=== PATIENT | male | born 1990 | race Caucasian/White ===

== ENCOUNTER 2017-07-04 02:19 | Emergency (ER) | payer MEDICAID, SELFPAY ==
[2017-07-04 02:20] VITALS: BP 100/68; PULSE 69; RESP 12; TEMP 36.5; O2SAT 99; BMI 21.6
--- NOTE | 2017-07-04 02:42 | RAD_ITS ---
STUDY: X-RAY - RIGHT HAND REASON FOR EXAM: Male, 26 years old. Dog bite puncture wound the lateral aspect of the second metacarpal TECHNIQUE: 3 view(s) of the hand. COMPARISON: None. FINDINGS: Normal radiocarpal articulation. Normal distal radioulnar joint. Normal visualized carpal bones. Normal carpal articulations Normal carpometacarpal articulation of the thumb. Normal second through fifth carpometacarpal joints. Normal metacarpi. Normal metacarpophalangeal joint of the thumb. Normal interphalangeal joint of the thumb. Normal proximal and distal phalanges of the thumb. Normal metacarpophalangeal joints of the second through fifth fingers. Normal proximal and distal interphalangeal joints of the second through fifth fingers. Normal phalanges of the second through fifth fingers. The soft tissue structures are unremarkable. RAD/Hand Min 3 Views IMPRESSION: No demonstrated acute osseous injury. Electronically Signed: Jaison Garcia MD at 3:22 EDT Tel , Service support ,
[2017-07-04] MEDS: HYDROcodone Bitartrate/Apap 5/325 Tablet PO (02:48)
--- NOTE | 2017-07-04 03:53 | ED.VISSUMM ---
- ER Visit Summary Date of Service: 07/04/17 Chief Complaint: dog bite to right hand History of Present Illness: The patient is a 26 M who presents for dog bite to the right hand onset prior to arrival. Patient states he woke up to the dog getting into food, and when the patient tried to get him back into his crate, the dog bit him on the right hand. Rabies for the dog are up-to-date. Patient's tetanus has been updated in the last 5 years. Patient complains of pain. Limited view secondary to pain. Patient is right-handed. Physical Examination: Patient is awake and alert, afebrile, in no distress. Examination of the right upper extremity shows a 2+ radial pulse. Patient has 2 puncture wounds to the dorsum of the hand, over the proximal fourth and fifth metacarpals with associated swelling. Abrasion over the third MCP joint. 2 superficial lacerations proximal to the second and third MCP joints on the volar surface of the hand. Distal circulation, sensation, and motor function are intact. Patient able to fully flex and extend the fingers. Full flexion and extension of the wrist. Test Results: [] Emergency Department Course and Treatment: X-ray was performed of the hand given the swelling on the dorsum to make sure there is no retained foreign body such as a tooth. X-ray showed no retained teeth or bony involvement. Patient's hand was copiously irrigated using tap water. Wounds were explored and showed no involvement of the tendons, or neurovascular structures. Because these are puncture bite wounds, they will be left to heal by secondary intention. Patient was started on Augmentin for infection prophylaxis. He was given prescription for naproxen for pain. Wound care instructions and return precautions given. Patient discharged home. Treatment Plan: [] Disposition: [] Impression: Dog bite to the right hand This note was generated with [employer] dictation software. It may contain incorrect words, spelling, and punctuation that were not noted in review of the chart prior to signing ED Disposition - Plan for ED Patient: Disposition: Home or Assisted Living Chief Complaint: Bite Instructions: ED Bite Dog Prescriptions: Amox/Clavulanate Tablet [Augmentin Tablet] 875 mg PO Q12H #14 tab Naproxen [Naprosyn] 500 mg PO BID PRN #20 tab Referrals: Ronny Mitchell MD [STAFF PHYSICIAN] - 3-5 Days if not improving Care Physician,No Primary [Primary Care Provider] - Additional Instructions: Take the antibiotic as prescribed to help prevent infection in your hand from the dog bite. You may use naproxen as needed for pain. Wash the wounds gently with soap and water. Keep them clean and protected while at work. If you note any severe swelling, pus draining from the wounds, red streaking up your arm, inability to use your hand, numbness, or any other concerns, return immediately to the emergency department for another evaluation.
[2017-07-04 04:07] VITALS: PULSE 72; RESP 16; O2SAT 98
== END 2017-07-04 04:08 | disposition home or self-care (01) ==
PROVIDERS: Emergency Provider Emergency Medicine
DX: S61.451A Open bite of right hand, initial encounter (principal); W54.0XXA Bitten by dog, initial encounter; Y93.9 Activity, unspecified; Y92.9 Unspecified place or not applicable; Y99.9 Unspecified external cause status
CPT/HCPCS: 73130; 99283

== ENCOUNTER 2019-01-20 03:52 | Emergency (ER) | payer SELFPAY ==
[2019-01-20] VITALS (7 sets, daily range): BP systolic 92–169; BP diastolic 51–144; PULSE 84–115; RESP 14–22; TEMP 37.1; O2SAT 96–100; BMI 20.6
--- NOTE | 2019-01-20 04:22 | EKG12_ITS ---
Test Reason : SUBSTANCE ABUSE Blood Pressure : / mmHG Vent. Rate : 083 BPM Atrial Rate : 083 BPM P-R Int : 130 ms QRS Dur : 082 ms QT Int : 358 ms P-R-T Axes : 072 091 066 degrees QTc Int : 420 ms Normal sinus rhythm with sinus arrhythmia Rightward axis Nonspecific T wave abnormality Abnormal ECG Confirmed by MARSHALL FERRER, JAILENE ([id number]), video effects editor HECTOR [employer]STLE ([id number]) on 01/21/2019 2:51:21 PM Referred By: BB Confirmed By:JAILENE OLIVARES MD
--- NOTE | 2019-01-20 04:23 | ED.VIS.CHEST ---
History of Present Illness Chief Complaint: Substance Abuse Informant: Patient Onset: Hours - 1 Activity at onset: - - just after snorting cocaine Timing: Continuous Quality: Heaviness Location: Substernal Current Severity: Mild Maximum Severity: Mild Worsened By: Nothing Relieved By: Nothing Associated Symptoms: Dyspnea. Negative for: Nausea, Vomiting, Diaphoresis, Cough, Lightheadedness, Palpitations Narrative: Patient states he has been abusing a significant amount of methamphetamine for the past week and as a result, not sleeping. Tonight he used methamphetamine along with cocaine. Subsequently, he started having chest heaviness and some trouble breathing and feels like my nervous system is shutting down, if you know what I mean. He states the breathing is better now but the chest heaviness persists. States he does not do cocaine often, has never had this before or any heart problems that he knows of although he had a history of asthma as a child. He does not feel like he is wheezing now. - Past Medical History (1) Mild intermittent asthma Status: Chronic Past Medical History - Allergies and Home Meds Allergies/Adverse Reactions: Allergies No Known Allergies Allergy (Verified 01/20/19 03:59) Primary Care Physician: [facility] [STAFF PHYSICIAN] - As soon as possible Lives: Alone Smoking Status: Current every day smoker Alcohol: None Drugs: Cocaine, - - Methamphetamine Review of Systems General: Denies: Chills, Fever, Sweats Eyes: Denies: Visual changes - bilaterally, Diplopia ENT: Denies: Bilateral ear pain, Rhinorrhea, Sore throat Cardiovascular: Reports: Chest pain. Denies: Palpitations Respiratory: Reports: Dyspnea. Denies: Cough, Dyspnea on exertion Gastrointestinal: Denies: Abdominal pain, Nausea, Vomiting, Diarrhea, Melena, Hematochezia Genitourinary: Denies: Dysuria, Hematuria, Frequency Musculoskeletal: Denies: Neck pain, Back pain, Extremity Pain Skin: Denies: Rash, Wounds Neurological: Denies: Headache, Weakness, Numbness Psych: Reports: Anxiety. Denies: Suicidal thoughts Physical Exam Vital Signs/Narrative: Vital Signs Temp Pulse Resp BP Pulse Ox 01/20/19 03:52 98.8 F 115 H 19 H 132/83 H 97 Inital Vital Signs reviewed: Yes General: Well nourished, Well developed, No Acute Distress Head: Normocephalic, Atraumatic Eyes: Perrl, EOMI ENT: Moist mucous membranes, No rhinorrhea Neck: Supple, Nontender Cardiovascular: Regular rate, Regular rhythm, No murmurs, Tachycardia Respiratory: No distress, CTA bilaterally, Chest nontender Abdomen: Soft, Nontender, Nondistended, Normal bowel sounds Back: Nontender, Normal Inspection Extremities: Nontender, No edema. Negative for: Calf Tenderness Skin: Normal color, No rash, No Trauma Neurological: Alert, Oriented x3, Cranial nerves II-XII grossly intact, Normal Strength, Normal Sensation Psychological: Normal affect, Normal Mood Diagnostic/Tx/Re-eval Laboratory Results 01/20/19 01/20/19 04:44 04:44 WBC 9.1 RBC 5.39 Hgb 15.8 Hct 47.6 MCV 88.3 MCH 29.3 MCHC 33.2 RDW Std Deviation 42.6 RDW Coeff of [place] 13.2 Plt Count 247 MPV 8.5 Immature Gran % (Auto) 0.800 Neut % (Auto) 69.3 Lymph % (Auto) 19.5 [place] % (Auto) 7.6 Eos % (Auto) 2.4 Baso % (Auto) 0.4 Absolute Neuts (auto) 6.3 Absolute Lymphs (auto) 1.77 Nucleated RBC % 0 Sodium 138 Potassium 3.8 Chloride 103 Carbon Dioxide 29.0 Anion Gap 6 BUN 10 Creatinine 0.99 Estim Creat Clear Calc 98.59 Est GFR (MDRD) Af Amer 117 Est GFR (MDRD) Non-Af 97 BUN/Creatinine Ratio 10.1 Glucose 87 Calcium 8.6 Troponin I < 0.015 - Rhythm Strip Rhythm Strip: Sinus Tach Rate: 115 Ectopy: None - EKG Initial EKG Interpretation: Sinus Rhythm, No Acute Injury Pattern, Non-Specific ST Changes - laterally without ST elev/depr Treatment: Aspirin, NTG SL, - - Ativan Repeat Eval: Pain Free FAVIAN Risk: No Positive FAVIAN Elements Score: 0 - Medical Decision Making Patient slept comfortably in the emergency department after treatment. Chest discomfort is resolved. He is very sleepy and we asked him to call for a ride home, he pulled the sheet over his head. He needs to go home and rest, and follow-up with rehab, to which he was referred. No evidence for acute myocardial ischemia. ED Disposition - Plan for ED Patient: Disposition: Home or Assisted Living Diagnosis: Chest pain, Cocaine abuse Instructions: Cocaine: Myths and Facts, CHEST PAIN, Uncertain Cause, Drug Abuse Referrals: [facility] [STAFF PHYSICIAN] - As soon as possible
[2019-01-20] MEDS: Aspirin 81 MG TAB.CHEW 162 MG PO (04:40)
[2019-01-20] MEDS: LORazepam 2 MG/ML Syringe 0.5 MG IV (04:41)
[2019-01-20 04:51] LABS: Absolute Lymphocyte Count 1.77 X10^3/uL (0.83-4.51); Absolute Neutrophil Count 6.3 X10^3/uL (2.0-7.7); Basophil# 0.04 X10^3/uL; Basophil% 0.4 % (0-1); Eosinophil# 0.22 X10^3/uL; Eosinophils% 2.4 % (0-5); Hematocrit 47.6 % (40-54); Hemoglobin 15.8 g/dL (13.0-16.5); Lymphocyte # 1.77 X10^3/ul (4.0); Lymphocyte % 19.5 % (19-41); Mean Corp Hgb Conc 33.2 g/dL (32-36); Mean Corpuscular Hgb 29.3 pg (27.0-32.0); Mean Corpuscular Volume 88.3 fL (80-94); Mean Platelet Vol. 8.5 fl (6.2-12.0); Monocyte# 0.69 X10^3/uL; Monocyte% 7.6 % (0-10); NRBC Flagged by Analyzer 0 % (0-5); Neutrophil # 6.31 X10^3/uL (2.7-7.7); Neutrophil % 69.3 % (47-70); Platelet Count 247 K/mm3 (150-450); RBC Distribution Width CV 13.2 % (11.6-14.6); RBC Distribution Width SD 42.6 fl (35.1-43.9); Red Blood Count 5.39 M/mm3 (4.6-6.2); White Blood Count 9.1 K/mm3 (4.4-11.0)
[2019-01-20] MEDS: Nitroglycerin SL (ED/IMG/CATH) 0.4 MG TABLET SUBLINGUAL ×2 (04:52→05:08)
[2019-01-20 05:10] LABS: Anion Gap 6 (5-15); BUN 10 mg/dL (7-18); BUN/Creat Ratio 10.1 RATIO (10-20); Calcium,Total 8.6 mg/dL (8.5-10.1); Chloride 103 mmol/L (98-107); Creatinine, Serum 0.99 mg/dL (0.70-1.30); EST Glomerular Filtration Rate 97 mL/min (>60); Est Glom Filt Rate - Afr Amer 117 mL/min (>60); Estimated Creatinine Clearance 98.59 ml/min; Glucose 87 mg/dL (74-106); Potassium 3.8 mmol/L (3.5-5.1); Sodium Level 138 mmol/L (136-145)
== END 2019-01-20 09:02 | disposition home or self-care (01) ==
PROVIDERS: Emergency Provider Emergency Medicine
DX: R07.9 Chest pain, unspecified (principal); F14.10 Cocaine abuse, uncomplicated; F17.200 Nicotine dependence, unspecified, uncomplicated; J45.20 Mild intermittent asthma, uncomplicated
CPT/HCPCS: 80048; 84484; 85025; 93005; 96374; 99285

== ENCOUNTER 2019-10-28 21:33 | Emergency (ER) | payer SELFPAY ==
[2019-01-20 03:52] VITALS: BMI 20.6
[2019-10-28 21:34] VITALS: BP 121/79; PULSE 108; RESP 16; TEMP 36.3; O2SAT 97; BMI 23.6
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
[2019-10-28] MEDS: Naproxen 500 MG Tablet PO (21:50)
[2019-10-28] MEDS: Diphth,Pertuss(Acell),Tet Vac 0.5 ML Vial IM (21:50)
[2019-10-28] MEDS: Silver Sulfadiazine 1% Crm 50 gm Bottle 1 APPLIC TOPICAL (21:51)
== END 2019-10-28 22:14 | disposition home or self-care (01) ==
LOC: ED 22:00
PROVIDERS: Emergency Provider Emergency Medicine
DX: T23.071A Burn of unspecified degree of right wrist, initial encounter (principal); X10.2XXA Contact with fats and cooking oils, initial encounter; F17.200 Nicotine dependence, unspecified, uncomplicated
CPT/HCPCS: 90471; 90715; 99283

== ENCOUNTER 2019-11-03 00:10 | Emergency (ER) | payer SELFPAY ==
[2019-11-03 00:11] VITALS: BP 125/79; PULSE 90; RESP 18; TEMP 36.3; O2SAT 97; BMI 23.4
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
[2019-11-03] MEDS: Cephalexin 250 MG Capsule 500 MG PO (00:53)
[2019-11-03] MEDS: BACITRACIN 15 GM Tube 1 APPLIC TOPICAL (00:54)
== END 2019-11-03 01:01 | disposition home or self-care (01) ==
LOC: ED 00:47
PROVIDERS: Emergency Provider Emergency Medicine
DX: T23.071D Burn of unspecified degree of right wrist, subsequent encounter (principal); X08.8XXD Exposure to other specified smoke, fire and flames, subsequent encounter
CPT/HCPCS: 99283

== ENCOUNTER → 2021-06-30 | Outpatient (CLI) | payer OTHER, SELFPAY ==
[2021-06-30 21:33] LABS: Absolute Neutrophil Count 3.8 X10^3/uL (2.0-7.7); Basophil# 0.03 X10^3/uL; Basophil% 0.5 % (0-1); Eosinophil# 0.17 X10^3/uL; Eosinophils% 2.9 % (0-5); Hematocrit 48.1 % (40-54); Hemoglobin 16.3 g/dL (13.0-16.5); Lymphocyte % 16.8 % (19-41); Mean Corp Hgb Conc 33.9 g/dL (32-36); Mean Corpuscular Hgb 28.8 pg (27.0-32.0); Mean Platelet Vol. 9.5 fl (6.2-12.0); Monocyte# 0.91 X10^3/uL; Monocyte% 15.3 % (0-10); NRBC Flagged by Analyzer 0 % (0-5); Neutrophil # 3.82 X10^3/uL (2.7-7.7); Neutrophil % 64.2 % (47-70); POSITIVE MORPHOLOGY YES; Platelet Count 260 K/mm3 (150-450); RBC Distribution Width CV 13.2 % (11.6-14.6); RBC Distribution Width SD 41.2 fl (35.1-43.9); Red Blood Count 5.66 M/mm3 (4.6-6.2)
[2021-06-30 21:34] LABS: Differential Indicated SCAN CRITERIA MET
[2021-06-30 21:53] LABS: ALB/GLOB Ratio 1.1 RATIO (0.9-2.4); AST(SGOT) 22 U/L (15-37); Alanine Aminotransfer ALT/SGPT 43 U/L (16-61); Albumin, Serum 3.4 g/dL (3.2-5.0); Alkaline Phosphatase 77 U/L (45-117); Anion Gap 8 (5-15); BUN 17 mg/dL (7-18); BUN/Creat Ratio 15.3 RATIO (10-20); Calcium,Total 8.4 mg/dL (8.5-10.1); Chloride 105 mmol/L (98-107); Creatinine, Serum 1.11 mg/dL (0.70-1.30); EST Glomerular Filtration Rate 83 mL/min (>60); Est Glom Filt Rate - Afr Amer 101 mL/min (>60); Globulin 3.1 g/dL (2.2-4.2); Glucose 96 mg/dL (74-106); Potassium 3.9 mmol/L (3.5-5.1); Protein, Total 6.5 g/dL (6.4-8.2); Sodium Level 137 mmol/L (136-145)
[2021-06-30 22:50] LABS: Differential Comment SCANNED
== END | disposition home or self-care (01) ==
PROVIDERS: Referring Provider Nurse Practitioner; Visit Provider Nurse Practitioner
DX: R10.13 Epigastric pain (principal); R11.0 Nausea
CPT/HCPCS: 80053; 85025

== ENCOUNTER 2022-04-10 19:48 | Emergency (ER) | payer OTHER, SELFPAY ==
[2022-04-10 19:49] VITALS: BP 96/61; PULSE 112; RESP 18; TEMP 36.2; O2SAT 98; BMI 25.0
--- NOTE | 2022-04-10 20:09 | EX.ED.GUMALE ---
HPI History of Present Illness Chief Complaint: Male Pain/Injury Informant: patient Pain Onset: Days (2) Context: Gradual Onset Timing: Continuous Worsened by: Movement Relieved by: Rest Narrative Narrative: Patient presents with pain in his left groin, hip, and perineal area that has been getting worse over the past 2 days. Patient describes his pain as sharp. Patient states it is worse with any movement. Patient states it is better with rest. Patient admits to subjective fevers and chills. Patient states he has broken out into a sweat. Patient states this pain does radiate into his back at times. Patient denies any dysuria or hematuria. Patient denies any nausea or vomiting. Patient denies any urethral discharge or drainage. [facility] Medical History Drug abuse Home Medications promethazine 12.5 mg tablet 12.5 mg PO TID PRN nausea and vomiting #45 tabs 06/30/21 [Rx Last Taken Unknown] Allergy/AdvReac Type Severity Reaction Status Date / Time No Known Allergies Allergy Verified 04/10/22 19:49 Surgical History History of tonsillectomy and adenoidectomy Social History Smoking Status: Current every day smoker tobacco type: cigarettes ROS ROS ED Constitutional Constitutional ED: Reports chills, fever(s), subjective and sweats Eyes Eyes: Denies blurry vision or change in vision ENT ENT ED: Denies rhinorrhea or sore throat Cardiovascular Cardiovascular: Denies chest pain or palpitations Respiratory/Chest Respiratory/Chest: Denies cough or dyspnea Gastrointestinal Gastrointestinal: Denies nausea or vomiting Genitourinary Genitourinary ED: Denies dysuria or hematuria Musculoskeletal Musculoskeletal: Reports back pain; Denies neck pain Integumentary Denies abscess or rash Neurologic Neurologic: Reports weakness; Denies headache(s) Allergic/Immunologic Allergic/Immunologic ED: Denies mouth swelling or urticaria EXAM Physical Exam Const Vital Signs: 04/10/22 19:49 04/10/22 21:48 Temperature 97.1 F L Temperature Source Temporal Pulse Rate 112 H Respiratory Rate 18 Blood Pressure 96/61 Blood Pressure Mean 72 Pulse Ox 98 99 Oxygen Delivery Method Room Air Room Air Positive well nourished and well developed General Appearance ED: well developed HEENT Reports moist mucous membranes Neck supple and no JVD Resp normal respiratory effort and clear to auscultation bilaterally Cardio regular rate, regular rhythm and no murmurs GI normal to inspection, nondistended, normoactive bowel sounds Palpation: soft and tender LLQ; Negative for guarding Narrative: There is mild left inguinal tenderness. I do not appreciate a left inguinal hernia. There is no tenderness over the right inguinal area. There is no tenderness over the scrotum or testes. There are no external penile lesions noted. Extremity normal to inspection General Extremety ED: Negative for edema or tenderness General Extremity: Negative for edema Neuro oriented x3, CN's II-XII intact bilaterally and no sensory deficits noted Sensorium / Orientation: alert Motor Exam: strength 5/5 throughout Psych mental status grossly normal Skin no rashes or lesions noted MDM MDM MDM Narrative Medical decision making narrative: Differential diagnosis includes epididymitis, ureteral calculus, urinary tract infection, and inguinal hernia. CBC will be obtained to assess for leukocytosis and anemia. Basic metabolic profile will be obtained to assess for electrolyte abnormality and renal function. CT scan of the abdomen pelvis will be obtained to assess for ureteral calculus. Urinalysis will be obtained to assess for urinary tract infection and hematuria. GC and Chlamydia cultures will be obtained of the urine to assess for sexually transmitted diseases. Lab Data Attestation: I reviewed the patient's lab results. Lab results narrative: BC was reviewed and was within normal limits. Basic metabolic profile was reviewed and was within normal limits. Urinalysis was reviewed and was within normal limits. Labs: Laboratory Results - last 24 hr 04/10/22 04/10/22 04/10/22 20:25 20:25 21:27 WBC 9.2 RBC 5.20 Hgb 15.3 Hct 45.4 MCV 87.3 MCH 29.4 MCHC 33.7 RDW Std Deviation 41.3 RDW Coeff of Sharon 13.0 Plt Count 259 MPV 8.9 Immature Gran % (Auto) 0.700 Neut % (Auto) 60.7 Lymph % (Auto) 26.1 [place] % (Auto) 10.1 H Eos % (Auto) 2.0 Baso % (Auto) 0.4 Absolute Neuts (auto) 5.6 Absolute Lymphs (auto) 2.41 Nucleated RBC % 0 Sodium 140 Potassium 3.8 Chloride 108 H Carbon Dioxide 21.0 Anion Gap 11 BUN 10 Creatinine 0.86 Estim Creat Clear Calc 118.49 Est GFR (MDRD) Af Amer 135 Est GFR (MDRD) Non-Af 111 BUN/Creatinine Ratio 11.6 Glucose 90 Calcium 8.9 Urine Color Yellow Urine Clarity Cloudy Urine pH 7.0 Ur Specific [place] 1.020 Urine Protein Negative Urine Glucose (UA) Normal Urine Ketones 5 H Urine Occult Blood Negative Urine Nitrite Negative Urine Bilirubin Negative Urine Urobilinogen Normal Ur Leukocyte Esterase 25 H Urine RBC 0 SEEN Urine WBC 0-5 SEEN Ur Squamous Epith Cells 0-5 SEEN Amorphous Sediment 1+ Urine Bacteria 1+ Urine Mucus RARE Radiography Diagnostic Testing: Clinical Impression(s) from Imaging Studies Abdomen/Pelvis CT 04/10/22 20:16 IMPRESSION: Negative CT of the abdomen and pelvis without intravenous contrast. Electronically Signed: Meir Mcneill MD at 20:56 EST , CT scan of the abdomen pelvis was obtained. There is no acute intra-abdominal abnormality. There is no free air or free fluid. There is no evidence of obstruction or hydronephrosis. This was interpreted by the radiologist and was also independently reviewed by myself. Treatment and Re-Evaluation Narrative: Patient was given IV fluids, Toradol, and Zofran. Patient is feeling better on reevaluation. Patient was advised of his findings. Patient was instructed to follow-up with his primary care physician in 5 to 7 days. Patient understood and was agreeable with the plan. All questions were answered. Discharge Plan Triage Chief Complaint: Male Pain/Injury ED Provider: Power Rios Dx/Rx/DC Orders Clinical Impression: Left inguinal pain Instructions: ED Pain, Acute, Uncertain Cause Prescriptions: No Action promethazine 12.5 mg tablet 12.5 mg PO TID PRN (Reason: nausea and vomiting) Qty: 45 0RF Primary Care Provider: Care Physician,No Primary Referrals: Baljeet Knox DO [Med Staff - Signal Tester] - 5-7 Days Care Physician,No Primary [Primary Care Provider] - Disposition Disposition: Home, Self Care
--- NOTE | 2022-04-10 20:16 | CT_ITS ---
EXAM: CT ABDOMEN AND PELVIS WITHOUT INTRAVENOUS CONTRAST CLINICAL INDICATION: Left inguinal pain TECHNIQUE: Helically acquired images were obtained of the abdomen and pelvis without intravenous contrast. This CT exam was performed using one or more of the following dose reduction techniques: automated exposure control, adjustment of the mA and/or kV according to patient size, and/or use of iterative reconstruction technique. This report was created using [employer] report generation technology. RADIATION DOSE: CTDIvol = 6.09 mGy, DLP = 325.54 mGy-cm. COMPARISON: None. FINDINGS: LOWER THORAX: Unremarkable. Lung bases are clear. No cardiomegaly. No significant pericardial effusion. ABDOMEN: LIVER: Unremarkable. Homogeneous. GALLBLADDER AND BILE DUCTS: Unremarkable. No calcified gallstones. No gallbladder distention or wall edema. No intra- or extrahepatic biliary ductal dilation. PANCREAS: Unremarkable. No focal cystic mass. SPLEEN: Unremarkable. Normal size without focal cystic or solid mass. ADRENALS: Unremarkable. No nodules. KIDNEYS AND URETERS: Unremarkable. Normal renal size and position. No hydronephrosis. STOMACH AND BOWEL: Unremarkable. No stomach or bowel distention. No focal inflammatory change. PELVIS: APPENDIX: No evidence of acute appendicitis. BLADDER: Unremarkable. REPRODUCTIVE: Unremarkable as visualized. No mass. ABDOMEN and PELVIS: INTRAPERITONEAL SPACE: Unremarkable. No ascites or other fluid collection. No free air. BONES/JOINTS: Unremarkable. No suspicious lytic or blastic abnormality. SOFT TISSUES: Unremarkable. No discrete abdominal or pelvic wall hernia. VASCULATURE: Unremarkable. Abdominal aorta is non-dilated. LYMPH NODES: Unremarkable. No enlarged lymph nodes. CT/Abdomen/Pelvis without Cont IMPRESSION: Negative CT of the abdomen and pelvis without intravenous contrast. Electronically Signed: Meir Mcneill MD at 20:56 [facility] ,
[2022-04-10 20:32] LABS: Absolute Lymphocyte Count 2.41 X10^3/uL (0.83-4.51); Absolute Neutrophil Count 5.6 X10^3/uL (2.0-7.7); Basophil# 0.04 X10^3/uL; Basophil% 0.4 % (0-1); Eosinophil# 0.18 X10^3/uL; Hematocrit 45.4 % (40-54); Hemoglobin 15.3 g/dL (13.0-16.5); Lymphocyte # 2.41 X10^3/ul (0.83-4.51); Lymphocyte % 26.1 % (19-41); Mean Corp Hgb Conc 33.7 g/dL (32-36); Mean Corpuscular Hgb 29.4 pg (27.0-32.0); Mean Corpuscular Volume 87.3 fL (80-94); Mean Platelet Vol. 8.9 fl (6.2-12.0); Monocyte# 0.93 X10^3/uL; Monocyte% 10.1 % (0-10); NRBC Flagged by Analyzer 0 % (0-5); Neutrophil % 60.7 % (47-70); Platelet Count 259 K/mm3 (150-450); RBC Distribution Width SD 41.3 fl (35.1-43.9); White Blood Count 9.2 K/mm3 (4.4-11.0)
[2022-04-10] MEDS: Ondansetron 4 MG/2 ML Vial IV (20:51)
[2022-04-10] MEDS: 0.9% Normal Saline 1,000 ML 1000 ML IV (20:51)
[2022-04-10] MEDS: Ketorolac 15 MG/ML Vial IV (20:51)
[2022-04-10 20:52] LABS: Anion Gap 11 (5-15); BUN 10 mg/dL (7-18); BUN/Creat Ratio 11.6 RATIO (10-20); Calcium,Total 8.9 mg/dL (8.5-10.1); Chloride 108 mmol/L (98-107); Creatinine, Serum 0.86 mg/dL (0.70-1.30); EST Glomerular Filtration Rate 111 mL/min (>60); Est Glom Filt Rate - Afr Amer 135 mL/min (>60); Estimated Creatinine Clearance 118.49 ml/min; Glucose 90 mg/dL (74-106); Potassium 3.8 mmol/L (3.5-5.1); Sodium Level 140 mmol/L (136-145)
[2022-04-10 21:42] LABS: Red Blood Cells-Urine 0 SEEN /hpf (0-5)
[2022-04-10 21:48] VITALS: O2SAT 99
[2022-04-10 22:01] LABS: Color, Urine Yellow (Yellow); Glucose, Dipstick Normal (Normal); Ketone-Dipstick 5 mg/dl (Negative); Leukocyte Esterase-Dipstick 25 /ul (Negative); Nitrite-Dipstick Negative (Negative); Occult Blood-Urine Negative /ul (Negative); Protein-Dipstick Negative (Negative); Urine Bilirubin Dipstick Negative (Negative); Urine Clarity Cloudy (Clear); Urine Urobilinogen Normal (Normal)
[2022-04-10 22:08] LABS: Amorphous Sediment 1+; Mucous, Urine RARE /hpf (<or=2+); Squamous Epithelial Cells - UA 0-5 SEEN /hpf (0-5); White Blood Cells 0-5 SEEN /hpf (0-5)
[2022-04-10 22:09] LABS: Bacteria 1+ /hpf (None Seen)
[2022-04-11 00:28] LABS: Chlamydia Trachomatis by PCR Negative (Negative); Neisserai gonorrhoeae by PCR Negative (Negative); Probe Check PASS; Sample Adequacy Control PASS; Specimen Processing Control PASS
== END 2022-04-10 22:40 | disposition home or self-care (01) ==
PROVIDERS: Emergency Provider Emergency Medicine; Visit Provider Emergency Medicine
DX: R10.2 Pelvic and perineal pain (principal); R68.83 Chills (without fever); F17.210 Nicotine dependence, cigarettes, uncomplicated
CPT/HCPCS: 74176; 80048; 81001; 85025; 87491; 87591; 96361; 96374; 96375; 99283; J7030; A4216; J2405